=== PATIENT | female | born 2000 ===

== ENCOUNTER 2020-12-08 18:13 | Emergency (ER) | payer OTHER ==
[~2020-12-08] VITALS: Ht 165.1 cm; Wt 65.0 kg
[2020-12-08 18:38] VITALS: BP 117/75
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
[2020-12-08] MEDS ORDERED: LIDOCAINE-MPF 1%, 5ML ONE (19:09)
[2020-12-08] MEDS ORDERED: LIDOCAINE-MPF 1%, 5ML INFIL ONE (19:30)
[2020-12-08] MEDS ORDERED: BACITRACIN ZINC OINT 500U/GM, 0.9 GM ONE (20:16)
--- NOTE | 2020-12-08 20:20 | NUR ---
Patient given discharge instructions and they have confirmed that they understand the instructions. Patient ambulatory with steady gait.
== END 2020-12-08 20:27 | disposition home or self-care (01) ==
LOC: ED 20:23
DX: S71.112A Laceration without foreign body, left thigh, initial encounter (principal); W18.30XA Fall on same level, unspecified, initial encounter; Y93.89 Activity, other specified; Y92.009 Unspecified place in unspecified non-institutional (private) residence as the place of occurrence of the external cause; Y99.8 Other external cause status
CPT/HCPCS: 12031; 99284